=== PATIENT | female | born 1950 | race Caucasian/White ===

== ENCOUNTER → 2016-07-09 | Day surgery (SDC) | payer OTHER ==
[2016-07-09 07:34] LABS: HCT 46.5 % (37.0-47.0); MCH 29.6 pg (25.0-31.0); MCHC 34.4 g/dL (32.0-36.0); MCV 86.1 fL (78.0-100.0); MPV 9.7 fL (6.0-9.5); RBC 5.4 M/uL (4.20-5.40); RDW 13.4 % (11.5-14.0); WBC 9.6 K/uL (4.0-10.5)
[2016-07-09 07:55] LABS: ALBUMIN 4.9 g/dL (3.4-4.8); BILIRUBIN - TOTAL 0.6 mg/dL (0.1-1.0); CREATININE 0.7 mg/dL (0.5-1.0); GLOBULIN (CALCULATION) 2.9 g/dL (2.2-4.2); POTASSIUM 3.2 mmol/L (3.5-5.1); TOTAL PROTEIN 7.8 g/dL (6.4-8.3)
== END | disposition home or self-care (01) ==
LOC: FAS 07:03
PROVIDERS: Surgery
DX: Z12.11 Encounter for screening for malignant neoplasm of colon (principal); D12.6 Benign neoplasm of colon, unspecified; K21.9 Gastro-esophageal reflux disease without esophagitis; I10 Essential (primary) hypertension; I48.91 Unspecified atrial fibrillation; E03.9 Hypothyroidism, unspecified; F32.9 Major depressive disorder, single episode, unspecified; F41.9 Anxiety disorder, unspecified; M19.90 Unspecified osteoarthritis, unspecified site; Z90.710 Acquired absence of both cervix and uterus; Z90.89 Acquired absence of other organs; Z90.49 Acquired absence of other specified parts of digestive tract; Z98.51 Tubal ligation status; Z88.0 Allergy status to penicillin; Z88.1 Allergy status to other antibiotic agents; Z88.6 Allergy status to analgesic agent; Z90.721 Acquired absence of ovaries, unilateral; Z82.61 Family history of arthritis; Z82.5 Family history of asthma and other chronic lower respiratory diseases; Z81.8 Family history of other mental and behavioral disorders; Z82.62 Family history of osteoporosis; Z82.49 Family history of ischemic heart disease and other diseases of the circulatory system; Z80.3 Family history of malignant neoplasm of breast; Z82.0 Family history of epilepsy and other diseases of the nervous system; Z83.3 Family history of diabetes mellitus; Z79.82 Long term (current) use of aspirin; Z79.899 Other long term (current) drug therapy
CPT/HCPCS: 36415; 80053; 88305; J2704

== ENCOUNTER → 2021-08-24 | Day surgery (SDC) | payer MEDICARE, OTHER ==
[~2021-08-24] VITALS: Ht 160 cm; Wt 85.5 kg
[~2021-08-24] MED LIST: ASPIRIN EC81 MG PO; BACLOFEN 10MG T10 MG PO; CRESTOR20 MG PO; GLUCOTROL5 MG PO; LASIX20 MG PO; METFORMIN HCL500 MG PO; NORVASC5 MG PO; PEPCID AC20 MG PO; PROZAC20 MG PO; SYNTHROID150 MCG PO; UROCIT-K10 MEQ PO; VITAMIN D350 MCG PO
[2021-08-24 08:21] LABS: HCT 42.8 % (37.0-47.0); HGB 13.9 g/dl (12.5-16.0); MCH 27.4 pg (25.0-31.0); MCHC 32.5 g/dL (32.0-36.0); MCV 84.4 fL (78.0-100.0); MPV 10.1 fL (6.0-9.5); RBC 5.07 M/uL (4.20-5.40); RDW 13.9 % (11.5-14.0); WBC 10.6 K/uL (4.0-10.5)
[2021-08-24 08:39] LABS: ALBUMIN 4.1 g/dL (3.4-5.0); BILIRUBIN - TOTAL 0.7 mg/dL (0.2-1.0); BUN/CREAT RATIO (CALC) 19.4 RATIO; CREATININE 0.62 mg/dL (0.51-0.95); GLOBULIN (CALCULATION) 4.1 g/dL; POTASSIUM 3.4 mmol/L (3.5-5.1); TOTAL PROTEIN 8.2 g/dL (6.4-8.2)
== END | disposition home or self-care (01) ==
LOC: FAS 07:46
PROVIDERS: Surgery
DX: Z12.11 Encounter for screening for malignant neoplasm of colon (principal); R10.11 Right upper quadrant pain; D12.0 Benign neoplasm of cecum; D12.3 Benign neoplasm of transverse colon; K58.9 Irritable bowel syndrome, unspecified; Z86.010 Personal history of colon polyps; Z88.0 Allergy status to penicillin; Z88.8 Allergy status to other drugs, medicaments and biological substances; Z79.82 Long term (current) use of aspirin
CPT/HCPCS: 36415; 80053; J1610; J2250; J2704; J7120